=== PATIENT | male | born 1975 | race Caucasian/White ===

== ENCOUNTER → 2017-08-21 | Outpatient (CLI) | payer OTHER ==
[2017-08-21 09:45] LABS: D-DIMER 0.64 mg/L FEU (0.15-0.50)
== END ==
LOC: LAB 09:04 → RAD 09:04 → EDBD 09:04
PROVIDERS: Family Medicine
DX: R79.1 Abnormal coagulation profile (principal); R06.02 Shortness of breath
CPT/HCPCS: Q9967

== ENCOUNTER → 2017-08-26 | Outpatient (CLI) | payer OTHER | LOC: RAD 09:35 | DX: R51 Headache (principal) ==